=== PATIENT | male | born 2005 ===

== ENCOUNTER → 2024-08-12 | Outpatient (CLI) | payer OTHER, SELFPAY ==
[2024-08-12 16:53] LABS: Lactate (Lactic Acid) 1.7 mMol/L (0.4-2.0)
[2024-08-12 17:09] LABS: C-Reactive Protein 0.7 mg/dL (0.0-0.9)
== END | disposition home or self-care (01) ==
LOC: SLDO 14:54
PROVIDERS: PCP Family Medicine; Referring Provider Family Medicine; Visit Provider Family Medicine
DX: R68.89 Other general symptoms and signs (principal)
CPT/HCPCS: 36415; 83605; 86140; 87040

== ENCOUNTER → 2024-09-03 | Outpatient (CLI) | payer OTHER, SELFPAY ==
[2024-09-03 16:05] LABS: Strep A Rapid Negative (Negative)
== END | disposition home or self-care (01) ==
LOC: SLDO 14:14
PROVIDERS: PCP Family Medicine; Referring Provider Family Medicine; Visit Provider Family Medicine
DX: R68.89 Other general symptoms and signs (principal)
CPT/HCPCS: 87070; 87651